=== PATIENT | male | born 1980 | race Caucasian/White ===

== ENCOUNTER 2018-12-10 17:22 | Observation (INO) ==
[2018-12-10] MEDS ORDERED: Ondansetron 4 MG/2 ML VIAL IVP STA (17:36)
[2018-12-10] MEDS ORDERED: *HR* FentaNYL (PF) 100 MCG/2 ML VIAL IVP STA (17:36)
[2018-12-10] MEDS ORDERED: 0.9 % Sodium Chloride 1,000 ML IVC ONE (17:37)
[2018-12-10 18:21] LABS: Basophils # 0.1 K/mcL (0.0-0.2); Basophils % 0.4 %; Eosinophils # 0.1 K/mcL (0.0-0.6); Eosinophils % 0.9 %; Hematocrit 41.4 % (37.5-50.1); Immature Granulocytes % 0.3 % (0-4); Lymphocytes # 3.1 K/mcL (0.6-4.6); Mean Corpuscular HGB Conc 36.2 g/dL (31.6-35.5); Mean Corpuscular Hemoglobin 33.6 pg (28.0-33.3); Mean Corpuscular Volume 92.6 fL (83.0-100.0); Mean Platelet Volume 10.3 fL (9.4-12.4); Monocytes # 0.7 K/mcL (0.0-1.3); Monocytes % 6.6 %; Neutrophils # 7.1 K/mcL (1.6-8.9); Platelet Count 240 K/mcL (140-400); Red Blood Count 4.47 M/mcL (4.19-5.50); Red Cell Distribution Width 11.8 % (11.5-14.5); Segmented Neutrophils % 63.8 %; White Blood Count 11.2 K/mcL (4.3-11.1)
[2018-12-10 18:29] LABS: Bilirubin,Urine Small (Negative); Blood,Urine Moderate (Negative); Clarity,Urine Clear (Clear); Color,Urine Dark Yellow (Yellow); Glucose,Urine (UA) Normal (Normal); Ketones,Urine Negative (Negative); Leukocyte Esterase,Urine Negative (Negative); Nitrite,Urine Negative (Negative); PH,Urine 5.5 pH Units (5.0-8.0); Protein,Urine 30 mg/dL (Neg-Trace); Specific Gravity,Urine 1.023 (1.010-1.025); Urobilinogen,Urine Normal (Normal)
[2018-12-10 18:31] LABS: Bacteria,Urine None Seen per hpf (None-Few); Hyaline Casts,Urine None Seen per lpf (None-Few); RBC,Urine 15-30 per hpf (0-3); Squamous Epithelial Cell,Urine Many per lpf (None-Few)
[2018-12-10] MEDS ORDERED: Ketorolac 15 MG/ML VIAL IVP ONE (18:32)
[2018-12-10] MEDS ORDERED: *HR* FentaNYL (PF) 100 MCG/2 ML VIAL IVP ONE (18:39)
[2018-12-10 18:40] LABS: BUN/Creatinine Ratio 11 (6-26); Blood Urea Nitrogen 10 mg/dL (6-20); Calcium 9.6 mg/dL (8.6-10.3); Carbon Dioxide 25 mEq/L (23-29); Chloride 105 mEq/L (98-107); Glucose 106 mg/dL (70-105); Osmolality,Calculated 291 (280-300); Potassium 3.2 mEq/L (3.5-5.1); Sodium 141 mEq/L (136-145); eGFR For African Americans > 60 (> 60); eGFR For Non-African Americans > 60 (> 60)
[2018-12-10] MEDS ORDERED: *HR* HYDROmorphone (PF) 1 MG/ML SYRINGE IVP ONE (18:50)
[2018-12-10] MEDS ORDERED: Ondansetron 4 MG/2 ML VIAL IVP ONE (18:51)
[2018-12-10] MEDS ORDERED: KETAMINE IVPB ONE (19:26)
[2018-12-10] MEDS ORDERED: SODIUM CHLORIDE 0.9% IVPB ONE (19:26)
[2018-12-10] MEDS ORDERED: Naloxone 0.4 MG/ML INJ IVP PRN (21:39)
[2018-12-10] MEDS: 0.9 % Sodium Chloride 1,000 ML IVC SCH (22:45)
[2018-12-11] MEDS ORDERED: Acetaminophen IV 1,000 MG/100 ML INFUS..BTL IVPB ONE (00:16)
[2018-12-11] MEDS: 0.9 % Sodium Chloride 1,000 ML IVC SCH (08:03)
[2018-12-11 09:20] LABS: Basophils % 0.4 %; Eosinophils # 0.1 K/mcL (0.0-0.6); Eosinophils % 0.5 %; Hemoglobin 14.1 g/dL (12.9-16.9); Immature Granulocytes % 0.3 % (0-4); Lymphocytes # 2.2 K/mcL (0.6-4.6); Lymphocytes % 20.9 %; Mean Corpuscular HGB Conc 35.3 g/dL (31.6-35.5); Mean Corpuscular Hemoglobin 34.1 pg (28.0-33.3); Mean Corpuscular Volume 96.9 fL (83.0-100.0); Mean Platelet Volume 10.6 fL (9.4-12.4); Monocytes # 0.7 K/mcL (0.0-1.3); Monocytes % 6.4 %; Neutrophils # 7.5 K/mcL (1.6-8.9); Platelet Count 226 K/mcL (140-400); Red Blood Count 4.13 M/mcL (4.19-5.50); Red Cell Distribution Width 11.9 % (11.5-14.5); Segmented Neutrophils % 71.5 %; White Blood Count 10.5 K/mcL (4.3-11.1)
[2018-12-11 09:29] LABS: INR 1.1; Prothrombin Time 12.3 Seconds (9.4-12.1)
[2018-12-11 09:31] LABS: Activated Partial Thrombo Time 34.5 Seconds (26.0-36.0)
[2018-12-11 09:48] LABS: Alanine Aminotransferase 8 Units/L (7-52); Albumin 3.9 g/dL (3.5-5.7); Albumin/Globulin Ratio 1.8 (1.1-2.2); Alkaline Phosphatase 43 Units/L (34-104); Aspartate Amino Transferase 10 Units/L (13-39); BUN/Creatinine Ratio 10 (6-26); Bilirubin,Total 0.8 mg/dL (0.3-1.0); Blood Urea Nitrogen 9 mg/dL (6-20); Carbon Dioxide 24 mEq/L (23-29); Chol/HDL Ratio 6.4 (0-4.9); Cholesterol 160 mg/dL (< 200); Globulin 2.2 g/dL (2.4-3.5); Glucose 95 mg/dL (70-105); HDL Cholesterol 25 mg/dL (40-59); LDL Cholesterol,Calculated 100 mg/dL (0-99); Magnesium 1.7 mg/dL (1.6-2.6); Phosphorous 2.3 mg/dL (2.7-4.5); Total Protein 6.1 g/dL (6.4-8.9); Triglycerides 176 mg/dL (< 150); eGFR For African Americans > 60 (> 60); eGFR For Non-African Americans > 60 (> 60)
[2018-12-11] MEDS ORDERED: Ondansetron 4 MG/2 ML VIAL IVP PRN ×2 (09:53→19:41)
[2018-12-11] MEDS ORDERED: *HR* Promethazine 25 MG/ML VIAL IVP PRN ×2 (09:54→19:41)
[2018-12-11 10:00] LABS: Chloride 112 mEq/L (98-107); Osmolality,Calculated 292 (280-300); Potassium 3.5 mEq/L (3.5-5.1); Sodium 142 mEq/L (136-145)
[2018-12-11] MEDS: *HR* FentaNYL (PF) 100 MCG/2 ML VIAL IVP PRN ×2 (10:08→14:21)
[2018-12-11] MEDS ORDERED: *HR* HYDROmorphone (PF) 1 MG/ML SYRINGE IVP PRN (17:18)
[2018-12-11] MEDS ORDERED: Albuterol 2.5 MG/3 ML NEBULIZER IH ONE (17:21)
[2018-12-11] MEDS ORDERED: Albuterol 2.5 MG/3 ML NEBULIZER ONE (17:25)
[2018-12-11] MEDS ORDERED: Isovue-300 50ML VIAL ONE (17:52)
[2018-12-11] MEDS ORDERED: CeFAZolin Syr 2,000MG/20 ML 2,000 MG/20 ML SYRINGE IVPB ONE (17:57)
[2018-12-11] MEDS ORDERED: *HR* FentaNYL (PF) 100 MCG/2 ML VIAL ONE (18:18)
[2018-12-11] MEDS ORDERED: *HR* Propofol 200 MG/20 ML VIAL IVP ONE (18:18)
[2018-12-11] MEDS ORDERED: *HR* Midazolam HCl 2 MG/2 ML VIAL ONE (18:18)
[2018-12-11] MEDS ORDERED: Ondansetron 4 MG/2 ML VIAL ONE (18:35)
[2018-12-11] MEDS ORDERED: Dexamethasone 4 MG/ML VIAL ONE (18:35)
[2018-12-11] MEDS ORDERED: Naloxone 0.4 MG/ML INJ IVP PRN (19:41)
[2018-12-11 20:02] VITALS: BP 149/91
[2018-12-16 11:09] LABS: Calculi Mass 26 mg
== END 2018-12-11 20:35 | disposition left against medical advice (07) ==
LOC: 3ANU 17:22 → EMEROOARM 17:22 → SUATTDRO 20:21 → 3ANU 20:46
PROVIDERS: ADMIT Internal Medicine Nephrology; ATTEND Internal Medicine